=== PATIENT | female | born 1985 | race Caucasian/White ===

== ENCOUNTER 2016-11-18 02:45 | Emergency (ER) | payer OTHER ==
[2016-11-18 03:04] VITALS: BP 127/75; PULSE 60; RESP 18; TEMP 97.5
[2016-11-18] MEDS ORDERED: IBUPROFEN 600 MG TAB PO STA (03:18)
[2016-11-18] MEDS ORDERED: ACETAMINOPHEN TAB 325 MG TAB PO STA (03:18)
[2016-11-18] MEDS ORDERED: predniSONE 50 MG TAB PO STA (03:18)
--- NOTE | 2016-11-18 03:20 | ED ---
Extremity Problem HPI - General Chief complaint: Extremity Problem,Nontraumatic Stated complaint: Leg Pain Time Seen by Provider: 11/18/16 03:05 Source: patient, RN notes reviewed Mode of arrival: ambulatory Limitations: no limitations - History of Present Illness Initial comments: 31-year-old female presents emergency Department chief complaint of bilateral knee pain. Patient states last few days that she's had increasing symptoms of pain shooting down her legs. She states that since it starts in her knees and radiates down. Patient does have a history of scoliosis of her back. She states she has some right low back pain. Patient denies any bladder incontinence or retention. Denies any saddle anesthesias. Patient states that she had no dramatic injury to her knee or back at this time. Patient states that she did work last night and which made her symptoms worsen states that her knees evidence bothering her or just more in her legs in general. Patient has not tried any Tylenol Motrin at this time. - Related Data Home Medications Medication Instructions Recorded Confirmed Ranitidine HCl [Zantac] 75 mg PO HS 11/18/16 11/18/16 Previous Rx's Medication Instructions Recorded methylPREDNISolone [Medrol Dose 4 mg PO DIRECTED #1 pack 11/18/16 Pack] Allergies Allergy/AdvReac Type Severity Reaction Status Date / Time No Known Allergies Allergy Verified 12/24/14 04:49 Review of Systems ROS Statement: Those systems with pertinent positive or pertinent negative responses have been documented in the HPI. ROS Other: All systems not noted in ROS Statement are negative. Past Medical History Past Medical History: No Reported History Additional Past Medical History / Comment(s): Obstetric history: First she underwent a for distress. The second was a vaginal delivery at 34 weeks. This is her third and she had care with ar since 7 weeks. A+, abs neg, Rub Imm, RPR NR, Hep B neg. GBS neg. History of Any Multi-Drug Resistant Organisms: None Reported Past Surgical History: Section Past Anesthesia/Blood Transfusion Reactions: No Reported Reaction Past Psychological History: No Psychological Hx Reported Smoking Status: Never smoker Past Alcohol Use History: Occasional Past Drug Use History: None Reported - Past Family History Mother Family Medical History: Asthma General Exam Limitations: no limitations General appearance: alert, in no apparent distress Head exam: Present: atraumatic, normocephalic, normal inspection Respiratory exam: Present: normal lung sounds bilaterally. Absent: respiratory distress, wheezes, rales, rhonchi, stridor Cardiovascular Exam: Present: regular rate, normal rhythm, normal heart sounds. Absent: systolic murmur, diastolic murmur, rubs, gallop, clicks GI/Abdominal exam: Present: soft, normal bowel sounds. Absent: distended, tenderness, guarding, rebound, rigid Extremities exam: Present: other (Bilateral lower extremities neurovascular intact, strength is 5/5, bilateral knees no laxity negative anterior posterior drawer test no pain with valgus or varus no joint effusion) Back exam: Present: full ROM, tenderness (Mild tenderness right low back), paraspinal tenderness. Absent: vertebral tenderness Neurological exam: Present: alert, oriented X3, CN II-XII intact, reflexes normal. Absent: motor sensory deficit Course Vital Signs 11/18/16 03:00 Temperature 97.5 F L Pulse Rate 60 Respiratory 18 Rate Blood Pressure 127/75 O2 Sat by Pulse 100 Oximetry Medical Decision Making - Medical Decision Making 31-year-old female presented for leg pain. Patient's pain seems to be more lumbar radiculopathy in nature as it's pain is radiating down her legs. Patient has no physical findings on knee exam. Patient complains primarily of left knee pain but also right-sided. Patient was informed she may have meniscus injury of her knee if symptoms persist follow-up. Patient was offered pain medication in muscle relaxers which she declined. Patient was started on prednisone for inflammation and she will take [id number] acetaminophen. Disposition Clinical Impression: Lumbar radiculopathy, acute, Knee pain Disposition: HOME SELF-CARE Condition: Stable Instructions: Lumbar Radiculopathy (ED) Additional Instructions: Please return to the Emergency Department if symptoms worsen or any other concerns. Prescriptions: methylPREDNISolone [Medrol Dose Pack] 4 mg PO DIRECTED #1 pack Referrals: Aron Loera DO [Primary Care Provider] - 1-2 days Time of Disposition: 03:19
== END 2016-11-18 03:32 | disposition home or self-care (01) ==
LOC: EC 02:45
DX: M54.16 Radiculopathy, lumbar region (principal); M25.562 Pain in left knee; M25.561 Pain in right knee; Z79.899 Other long term (current) drug therapy
CPT/HCPCS: 99283; J7512

== ENCOUNTER 2018-01-20 20:36 | Emergency (ER) | payer OTHER ==
[2018-01-20 20:45] VITALS: BP 106/68; TEMP 98.3
[2018-01-20] MEDS ORDERED: SODIUM CHLORIDE 0.9% 1,000 ML IV STA (21:11)
[2018-01-20] MEDS ORDERED: ONDANSETRON 4 MG/2 ML VIAL IVP STA (21:11)
--- NOTE | 2018-01-20 21:14 | ED ---
Abdominal Pain HPI - General Chief Complaint: Abdominal Pain Stated Complaint: Pain URQ/nausea Time Seen by Provider: 01/20/18 20:52 Source: patient Mode of arrival: ambulatory Limitations: no limitations - History of Present Illness Initial Comments: Patient is a 32-year-old female that presents for abdominal pain and nausea. Patient states that the right upper quadrant abdominal pain is been intermittent for 1 month and a physical pressure sensation without radiation or modifying factors. She decided come in after she was having worsening nausea but the pain is about the same. She denies any fever/chills or vomiting/ diarrhea. She also admits to some pressure with urination but no zoey dysuria. She states that she has no prior history of intra-abdominal pathology. - Related Data Previous Rx's Medication Instructions Recorded Ondansetron Odt [Zofran Odt] 4 mg PO Q8HR PRN #15 tab 01/20/18 Allergies Allergy/AdvReac Type Severity Reaction Status Date / Time No Known Allergies Allergy Verified 01/20/18 20:45 Review of Systems ROS Statement: Those systems with pertinent positive or pertinent negative responses have been documented in the HPI. Constitutional: Negative for chills, fatigue and fever. HENT: Negative for congestion. Respiratory: Negative for chest tightness, shortness of breath and wheezing. Negative for cough Cardiovascular: Negative for chest pain and palpitations. Gastrointestinal: Positive for abdominal pain. Negative for abdominal distention , diarrhea, vomiting. Positive nausea Genitourinary: Negative for dysuria. Musculoskeletal: Negative for back pain, neck pain and neck stiffness. Skin: Negative for color change. Neurological: Negative for dizziness, speech difficulty, weakness and light- headedness. Psychiatric/Behavioral: Negative for agitation and confusion. Negative for anxiety ROS Other: All systems not noted in ROS Statement are negative. Past Medical History Past Medical History: No Reported History Additional Past Medical History / Comment(s): Obstetric history: First she underwent a for distress. The second was a vaginal delivery at 34 weeks. This is her third and she had care with [facility] since 7 weeks. A+, abs neg, Rub Imm, RPR NR, Hep B neg. GBS neg. History of Any Multi-Drug Resistant Organisms: None Reported Past Surgical History: Section Past Anesthesia/Blood Transfusion Reactions: No Reported Reaction Past Psychological History: No Psychological Hx Reported Smoking Status: Never smoker Past Alcohol Use History: Occasional Past Drug Use History: None Reported - Past Family History Mother Family Medical History: Asthma General Exam - General Exam Comments Initial Comments: Constitutional: Pt is oriented to person, place, and time. Pt appears well- developed and well-nourished. No distress. HENT: Head: Normocephalic and atraumatic. Eyes: EOM are normal. Neck: Normal range of motion. Neck supple. Cardiovascular: Normal rate, regular rhythm, S1 normal, S2 normal and normal heart sounds. Exam reveals no gallop and no friction rub. No murmur heard. Pulmonary/Chest: Effort normal and breath sounds normal. No tachypnea and no bradypnea. No respiratory distress. No wheezes or rales noted. Abdominal: Soft. Bowel sounds are normal. Pt exhibits no shifting dullness, no distension, no pulsatile liver, no fluid wave, no abdominal bruit and no ascites. There is no tenderness. There is no rigidity, no rebound, no guarding, no tenderness at McBurney's point and negative Wood's sign. Musculoskeletal: Normal range of motion. Neurological: Pt is alert and oriented to person, place, and time. No cranial nerve deficit. Skin: Skin is warm and dry. No rash noted. Pt is not diaphoretic. No erythema. No pallor. Psychiatric: Pt has a normal mood and affect. Pt behavior is normal. Thought content normal. Limitations: no limitations Course Vital Signs 01/20/18 01/20/18 20:43 22:55 Temperature 98.3 F Pulse Rate 72 88 Respiratory 18 16 Rate Blood Pressure 106/68 O2 Sat by Pulse 99 99 Oximetry Medical Decision Making - Medical Decision Making Laboratory studies showed no evidence of leukocytosis, transaminitis, pancreatitis. Urinalysis is also negative for as well as infection. Lab results were discussed with patient and because there is no overt abnormal findings, the pros and cons of ultrasound were discussed and patient ultimately declined ultrasound here in the emergency department that she did not wish to wait. She was also given Zofran and stated that her symptoms were significantly improved. Patient was advised that her symptoms may be secondary to gallbladder pathology but is on physical exam and laboratory findings, there does not appear to be emergent pathology didn't needs immediate imaging but that she should have this done on outpatient basis and that she should follow up with general surgery pending the findings.Explained all labs and diagnostic test results and that we will discharge the patient home and patient is to follow up with PCP in 1-2 days and return to the ED if symptoms worsen. Pt is agreeable to plan. - Lab Data Result diagrams: 01/20/18 21:20 01/20/18 21:20 Lab Results 01/20/18 01/20/18 01/20/18 Range/Units 21:20 21:20 21:20 WBC 5.9 (3.8-10.6) k/uL RBC 4.61 (3.80-5.40) m/uL Hgb 12.2 (11.4-16.0) gm/dL Hct 37.8 (34.0-46.0) % MCV 82.0 (80.0-100.0) fL MCH 26.5 (25.0-35.0) pg MCHC 32.3 (31.0-37.0) g/dL RDW 14.3 (11.5-15.5) % Plt Count 309 (150-450) k/uL Neutrophils % 42 % Lymphocytes % 43 % Monocytes % 9 % Eosinophils % 2 % Basophils % 1 % Neutrophils # 2.5 (1.3-7.7) k/uL Lymphocytes # 2.6 (1.0-4.8) k/uL Monocytes # 0.5 (0-1.0) k/uL Eosinophils # 0.1 (0-0.7) k/uL Basophils # 0.1 (0-0.2) k/uL Sodium 137 (137-145) mmol/L Potassium 4.4 (3.5-5.1) mmol/L Chloride 106 (98-107) mmol/L Carbon Dioxide 22 (22-30) mmol/L Anion Gap 9 mmol/L BUN 17 (7-17) mg/dL Creatinine 0.60 (0.52-1.04) mg/dL Est GFR (CKD-EPI)AfAm >90 (>60 ml/min/1.73 sqM) Est GFR (CKD-EPI)NonAf >90 (>60 ml/min/1.73 sqM) Glucose 104 H (74-99) mg/dL Calcium 9.4 (8.4-10.2) mg/dL Total Bilirubin 0.3 (0.2-1.3) mg/dL AST 26 (14-36) U/L ALT 29 (9-52) U/L Alkaline Phosphatase 52 (38-126) U/L Total Protein 7.8 (6.3-8.2) g/dL Albumin 4.1 (3.5-5.0) g/dL Lipase 220 (23-300) U/L Urine Color Urine Appearance (Clear) Urine pH (5.0-8.0) Ur Specific [place] (1.001-1.035) Urine Protein (Negative) Urine Glucose (UA) (Negative) Urine Ketones (Negative) Urine Blood (Negative) Urine Nitrite (Negative) Urine Bilirubin (Negative) Urine Urobilinogen (<2.0) mg/dL Ur Leukocyte Esterase (Negative) Urine RBC (0-5) /hpf Urine WBC (0-5) /hpf Ur Squamous Epith Cells (0-4) /hpf Urine HCG, Qual Not Detected (Not Detectd) 01/20/18 Range/Units 21:20 WBC (3.8-10.6) k/uL RBC (3.80-5.40) m/uL Hgb (11.4-16.0) gm/dL Hct (34.0-46.0) % MCV (80.0-100.0) fL MCH (25.0-35.0) pg MCHC (31.0-37.0) g/dL RDW (11.5-15.5) % Plt Count (150-450) k/uL Neutrophils % % Lymphocytes % % Monocytes % % Eosinophils % % Basophils % % Neutrophils # (1.3-7.7) k/uL Lymphocytes # (1.0-4.8) k/uL Monocytes # (0-1.0) k/uL Eosinophils # (0-0.7) k/uL Basophils # (0-0.2) k/uL Sodium (137-145) mmol/L Potassium (3.5-5.1) mmol/L Chloride (98-107) mmol/L Carbon Dioxide (22-30) mmol/L Anion Gap mmol/L BUN (7-17) mg/dL Creatinine (0.52-1.04) mg/dL Est GFR (CKD-EPI)AfAm (>60 ml/min/1.73 sqM) Est GFR (CKD-EPI)NonAf (>60 ml/min/1.73 sqM) Glucose (74-99) mg/dL Calcium (8.4-10.2) mg/dL Total Bilirubin (0.2-1.3) mg/dL AST (14-36) U/L ALT (9-52) U/L Alkaline Phosphatase (38-126) U/L Total Protein (6.3-8.2) g/dL Albumin (3.5-5.0) g/dL Lipase (23-300) U/L Urine Color Light Yellow Urine Appearance Cloudy H (Clear) Urine pH 6.0 (5.0-8.0) Ur Specific [place] 1.014 (1.001-1.035) Urine Protein Negative (Negative) Urine Glucose (UA) Negative (Negative) Urine Ketones Negative (Negative) Urine Blood Negative (Negative) Urine Nitrite Negative (Negative) Urine Bilirubin Negative (Negative) Urine Urobilinogen <2.0 (<2.0) mg/dL Ur Leukocyte Esterase Trace H (Negative) Urine RBC 1 (0-5) /hpf Urine WBC 3 (0-5) /hpf Ur Squamous Epith Cells 7 H (0-4) /hpf Urine HCG, Qual (Not Detectd) Disposition Clinical Impression: Abdominal pain, Nausea Disposition: HOME SELF-CARE Condition: Good Instructions: Abdominal Pain (ED) Prescriptions: Ondansetron Odt [Zofran Odt] 4 mg PO Q8HR PRN #15 tab PRN Reason: Nausea And Vomiting Is patient prescribed a controlled substance at d/c from ED?: No Referrals: Aron Loera DO [Primary Care Provider] - 1-2 days Adrian Johnson MD [STAFF PHYSICIAN] - 1-2 days Time of Disposition: 22:27
[2018-01-20 21:42] LABS: Basophils # (A) 0.1 k/uL (0-0.2); Basophils % (A) 1 %; Eosinophils # (A) 0.1 k/uL (0-0.7); Eosinophils % (A) 2 %; HCT 37.8 % (34.0-46.0); HGB 12.2 gm/dL (11.4-16.0); Lymphocytes # (A) 2.6 k/uL (1.0-4.8); Lymphocytes % (A) 43 %; MCH 26.5 pg (25.0-35.0); MCHC 32.3 g/dL (31.0-37.0); Mean Platelet Volume 6.8; Monocytes # (A) 0.5 k/uL (0-1.0); Monocytes % (A) 9 %; Neutrophils # (A) 2.5 k/uL (1.3-7.7); Neutrophils % (A) 42 %; Platelet Count 309 k/uL (150-450); RBC 4.61 m/uL (3.80-5.40); RDW 14.3 % (11.5-15.5); WBC 5.9 k/uL (3.8-10.6)
[2018-01-20 21:45] LABS: Appearance,Urine Cloudy (Clear); Bilirubin,Urine Negative (Negative); Blood,Urine Negative (Negative); Color,Urine Light Yellow; Glucose,Urine (UA) Negative (Negative); Ketones,Urine Negative (Negative); Leukocyte Esterase,Urine Trace (Negative); Nitrite,Urine Negative (Negative); Protein,Urine Negative (Negative); RBC,Urine 1 /hpf (0-5); Specific Gravity,Urine 1.014 (1.001-1.035); Squamous Epithelial Cell,Urine 7 /hpf (0-4); Urobilinogen,Urine <2.0 mg/dL (<2.0); WBC,Urine 3 /hpf (0-5)
[2018-01-20 21:51] LABS: ALT 29 U/L (9-52); AST 26 U/L (14-36); Albumin 4.1 g/dL (3.5-5.0); Alkaline Phosphatase 52 U/L (38-126); Anion Gap 9 mmol/L; Blood Urea Nitrogen 17 mg/dL (7-17); Calcium 9.4 mg/dL (8.4-10.2); Carbon Dioxide 22 mmol/L (22-30); Chloride 106 mmol/L (98-107); Glucose 104 mg/dL (74-99); Lipase 220 U/L (23-300); Potassium 4.4 mmol/L (3.5-5.1); Sodium 137 mmol/L (137-145); Total Bilirubin 0.3 mg/dL (0.2-1.3); Total Protein 7.8 g/dL (6.3-8.2)
[2018-01-20 22:59] VITALS: PULSE 88; RESP 16
== END 2018-01-20 22:55 | disposition home or self-care (01) ==
LOC: EC 20:36
DX: R10.11 Right upper quadrant pain (principal); R11.0 Nausea
CPT/HCPCS: 36415; 80053; 83690; 85025; 81001; 81025; 99284; 96374; 96361; J2405

== ENCOUNTER → 2018-01-31 | Outpatient (CLI) | payer OTHER ==
--- NOTE | 2018-01-31 15:00 | US ---
EXAMINATION TYPE: US transvaginal DATE OF EXAM: 01/31/2018 COMPARISON: 01/30/2014 CLINICAL HISTORY: R10.2 Pelvic pain. TECHNIQUE: Transvaginal sonographic images were medically necessary to better assess the following a natomy: Date of LMP: just stopped EXAM MEASUREMENTS: Uterus: 9.8 x 4.7 x 6.9 cm Endometrial Stripe: 1.1 cm Right Ovary: 2.6 x 2.3 x 1.8 cm Left Ovary: 3.2 x 2.7 x 2.4 cm 1. Uterus: Retroverted 2. Endometrium: wnl for secretory phase 3. Right Ovary: wnl 4. Left Ovary: 2.1 x 1.5 x 1.9 anechoic lesion most likely a cyst 5. Bilateral Adnexa: wnl 6. Posterior cul-de-sac: no free fluid Retroverted uterus is seen. Endometrium is heterogeneous, slightly thickened for proliferative phase of menstrual cycle after recently completing menstruation. No free fluid is seen in pelvic cul-de-sac . Both ovaries are seen. There is 2.0 cm prominent follicle or simple ovarian cyst and periphery of lef t ovary. IMPRESSION: No significant finding is seen to account for patient's symptoms of pelvic pain.
== END | disposition home or self-care (01) ==
LOC: RADUSWWP 12:23
PROVIDERS: ATTEND Family Medicine
DX: R10.2 Pelvic and perineal pain (principal)
CPT/HCPCS: 76830

== ENCOUNTER → 2019-04-18 | Outpatient (CLI) | payer OTHER ==
--- NOTE | 2019-04-18 15:52 | CT ---
EXAMINATION TYPE: CT brain wo con DATE OF EXAM: 04/18/2019 COMPARISON: CT brain July 05, 2017 HISTORY: headaches and pressure CT DLP: 963.6 mGycm. Automated Exposure Control for Dose Reduction was Utilized. TECHNIQUE: CT scan of the head is performed without contrast. FINDINGS: There is no acute intracranial hemorrhage, mass effect, or midline shift identified. The ventricles and sulci are within normal limits in size. Adams-white matter differentiation is maintai ramírez. The globes are intact and the visualized sinuses are clear. IMPRESSION: Unremarkable study. No significant change from prior.
== END | disposition home or self-care (01) ==
LOC: RADCTMAIN 15:25
PROVIDERS: ATTEND Family Medicine
DX: R51 Headache (principal)
CPT/HCPCS: 70450

== ENCOUNTER → 2019-04-24 | Outpatient (CLI) | payer OTHER ==
--- NOTE | 2019-04-24 10:02 | US ---
EXAMINATION TYPE: US abdomen complete DATE OF EXAM: 04/24/2019 COMPARISON: NONE CLINICAL HISTORY: R10.84 Generalized abdominal pain. RUQ pain when she bends down, h/o renal stones EXAM MEASUREMENTS: Liver Length: 13.9 cm Gallbladder Wall: 0.2 cm CBD: 0.5 cm Spleen: 12.0 cm Right Kidney: 9.4 x 4.7 x 4.7 cm Left Kidney: 10.3 x 4.4 x 4.6 cm Pancreas: wnl Liver: wnl Gallbladder: shadowing stones seen that were nobile with no wall thickening Evidence for sonographic Wood's sign: no CBD: wnl Spleen: wnl Right Kidney: inferior pole calculus measures 1.3 cm Left Kidney: inferior pole calculus measures 1.4 cm Upper IVC: wnl Abd Aorta: wnl The liver is homogenous. The intrahepatic portion of the IVC and proximal abdominal aorta are within normal limits. There is no evidence of cholelithiasis. Common bile duct is unremarkable. The visu alized portions of the pancreas are homogenous. The spleen is unremarkable. Kidneys are symmetric a nd free of hydronephrosis. No renal lesions are seen. IMPRESSION: Bilateral nonobstructing renal calculi. Cholelithiasis is also seen without sonographic e vidence of acute cholecystitis.
== END | disposition home or self-care (01) ==
LOC: RADUSWWP 08:58
PROVIDERS: ATTEND Family Medicine
DX: N20.0 Calculus of kidney (principal); K80.20 Calculus of gallbladder without cholecystitis without obstruction
CPT/HCPCS: 76700

== ENCOUNTER → 2021-10-21 | Outpatient (CLI) | payer OTHER ==
--- NOTE | 2021-10-21 09:17 | US ---
EXAMINATION TYPE: US pelvic complete DATE OF EXAM: 10/21/2021 COMPARISON: NONE CLINICAL HISTORY: PAIN. pain TECHNIQUE: . Transabdominal sonographic images of the pelvis were acquired. Transvaginal sonographi c images were medically necessary to better assess the following anatomy: Date of LMP: 10/17/2021 EXAM MEASUREMENTS: Uterus: 11.4 x 3.8 x 5.6 cm Endometrial Stripe: .6 cm Right Ovary: 2.4 x 1.5 x 2.3 cm Left Ovary: 3.0 x 1.9 x 3.0 cm 1. Uterus: Anteverted wnl 2. Endometrium: wnl 3. Right Ovary: wnl 4. Left Ovary: wnl 5. Bilateral Adnexa: wnl 6. Posterior cul-de-sac: wnl Urinary bladder appears sonolucent. Couple follicles may be present on the ovaries. IMPRESSION: 1. Normal pelvic ultrasound
--- NOTE | 2021-10-21 09:59 | US ---
EXAMINATION TYPE: US abdomen complete DATE OF EXAM: 10/21/2021 COMPARISON: NONE CLINICAL HISTORY: R10.84 Abd pain. pain TECHNIQUE: Multiple sonographic images of the abdomen are obtained. 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 Cholelithiasis.
== END | disposition home or self-care (01) ==
LOC: RADUSWWP 08:13
PROVIDERS: ATTEND Family Medicine
DX: R10.84 Generalized abdominal pain (principal)
CPT/HCPCS: 76700; 76856

== ENCOUNTER 2024-07-14 22:00 | Emergency (ER) | payer OTHER ==
[2024-07-14] MEDS: FLUORESCEIN STRIPS 1 MG STRIP RIGHT EYE ONE (22:29)
--- NOTE | 2024-07-14 23:13 | ED ---
Eye Problem HPI - General Chief complaint: Eye Problems Stated complaint: right eye blurry Time Seen by Provider: 07/14/24 22:16 Source: patient, RN notes reviewed Mode of arrival: ambulatory Limitations: no limitations - History of Present Illness Initial comments: This is a 38-year-old female presenting for sudden onset of right eye blurred vision x 2 hours. Patient states it feels her right eye is "underwater". Patient Dors is use of glasses and does not wear contacts. Denies change in vision in left eye, eye pain, diplopia, recent foreign body or trauma, discharge/epiphora,, loss of peripheral vision, sensation of curtain dropping downward, paresthesia, hemiplegia, dizziness. MD chief complaint: vision change Onset/Timin -: hour(s) Onset Description: sudden Location: right eye Place: home If Injury: none Eye Symptoms: blurry vision Associated Symptoms: none Treatments Prior to Arrival: irrigated eye - Related Data Previous Rx's Medication Instructions Recorded Ondansetron Odt [Zofran Odt] 4 mg PO Q8HR PRN #15 tab 01/20/18 Dicyclomine [Bentyl] 20 mg PO QID #15 tablet 05/03/22 Famotidine [Pepcid] 20 mg PO BID #14 tablet 05/03/22 Ondansetron Odt [Zofran ODT] 4 mg PO Q8HR PRN #10 tab 05/03/22 Allergies Allergy/AdvReac Type Severity Reaction Status Date / Time No Known Allergies Allergy Verified 07/14/24 22:07 Review of Systems ROS Statement: Those systems with pertinent positive or pertinent negative responses have been documented in the HPI. ROS Other: All systems not noted in ROS Statement are negative. Past Medical History Past Medical History: No Reported History Additional Past Medical History / Comment(s): Obstetric history: First she underwent a for distress. The second was a vaginal delivery at 34 weeks. This is her third and she had care with me since 7 weeks. A+, abs neg, Rub Imm, RPR NR, Hep B neg. GBS neg. History of Any Multi-Drug Resistant Organisms: None Reported Past Surgical History: Section, Cholecystectomy Past Anesthesia/Blood Transfusion Reactions: No Reported Reaction Past Psychological History: No Psychological Hx Reported Smoking Status: Never smoker Past Alcohol Use History: Occasional Past Drug Use History: None Reported - Past Family History Mother Family Medical History: Asthma General Exam Limitations: no limitations General appearance: alert, in no apparent distress Head exam: Present: atraumatic, normocephalic, normal inspection Eye exam: Present: normal appearance, PERRL, EOMI, other (Snellen chart: Right 20/25, left 20/20. Tonometer: Right 16, left 14. WhatsApp examination reveals no obvious foreign body, corneal abrasion, herpetic lesion, Brennen sign, hyphema, irregular pupil). Absent: scleral icterus, conjunctival injection, periorbital swelling Pupils: Present: normal accommodation ENT exam: Present: normal exam, mucous membranes moist Neck exam: Present: normal inspection. Absent: tenderness, meningismus, lymphadenopathy Respiratory exam: Present: normal lung sounds bilaterally. Absent: respiratory distress, wheezes, rales, rhonchi, stridor Cardiovascular Exam: Present: regular rate, normal rhythm, normal heart sounds. Absent: systolic murmur, diastolic murmur, rubs, gallop, clicks GI/Abdominal exam: Present: soft, normal bowel sounds. Absent: distended, tenderness, guarding, rebound, rigid Extremities exam: Present: normal inspection, full ROM, normal capillary refill. Absent: tenderness, pedal edema, joint swelling, calf tenderness Back exam: Present: normal inspection Neurological exam: Present: alert, oriented X3, CN II-XII intact Psychiatric exam: Present: normal affect, normal mood Skin exam: Present: warm, dry, intact, normal color. Absent: rash Course Vital Signs 07/14/24 07/14/24 22:02 23:36 Temperature 98.2 F 98.1 F Pulse Rate 88 64 Respiratory 20 18 Rate Blood Pressure 143/95 115/75 O2 Sat by Pulse 98 97 Oximetry Medical Decision Making - Medical Decision Making Was pt. sent in by a medical professional or institution (, PA, HEALTHCARE ASSOCIATE, urgent care, hospital, or [place] [facility] care facility...) When possible be specific @ -[No] Did you speak to anyone other than the patient for history (EMS, parent, family, police, friend...)? What history was obtained from this source @ -[No] Did you review nursing and triage notes (agree or disagree)? Why? @ -[I reviewed and agree with nursing and triage notes] Were old charts reviewed (outside hosp., previous admission, EMS record, old EKG, old radiological studies, urgent care reports/EKG's, [place] health care facility records)? Report findings @ -[No old charts were reviewed] Differential Diagnosis (chest pain, altered mental status, abdominal pain women, abdominal pain men, vaginal bleeding, weakness, fever, dyspnea, syncope, headache, dizziness, GI bleed, back pain, seizure, CVA, palpatations, mental health, musculoskeletal)? @ -Allergic conjunctivitis, viral conjunctivitis, iritis, episcleritis, this is not an exhaustive list EKG interpreted by me (3pts min.). @ -Not done X-rays interpreted by me (1pt min.). @ -[None done] CT interpreted by me (1pt min.). @ -[None done] U/S interpreted by me (1pt. min.). @ -[None done] What testing was considered but not performed or refused? (CT, X-rays, U/S, labs)? Why? @ -[None] What meds were considered but not given or refused? Why? @ -[None] Did you discuss the management of the patient with other professionals (professionals i.e. , PA, HEALTHCARE ASSOCIATE, lab, RT, psych nurse, social service manager, director data analytics, teacher, aboriginal home school liaison officer, casework manager)? Give summary @ -Spoke to Dr. Garcia who advised lubricating eyedrops and follow-up at his clinic tomorrow morning. Was smoking cessation discussed for >3mins.? @ -[No] Was critical care preformed (if so, how long)? @ -[No] Were there social determinants of health that impacted care today? How? (Homelessness, low income, unemployed, alcoholism, drug addiction, transportation, low edu. Level, literacy, decrease access to med. care, alf, rehab)? @ -[No] Was there de-escalation of care discussed even if they declined (Discuss DNR or withdrawal of care, Hospice)? DNR status @ -[No] What co-morbidities impacted this encounter? (DM, HTN, Smoking, COPD, CAD, Cancer, CVA, ARF, Chemo, Hep., AIDS, mental health diagnosis, sleep apnea, morbid obesity)? @ -[None] Was patient admitted / discharged? Hospital course, mention meds given and route, prescriptions, significant lab abnormalities, going to OR and other pertinent info. @ -[hospital course] Undiagnosed new problem with uncertain prognosis? @ -[No] Drug Therapy requiring intensive monitoring for toxicity (Heparin, Nitro, Insulin, Cardizem)? @ -[No] Were any procedures done? @ -[No] Diagnosis/symptom? @ -Unilateral vision changes Acute, or Chronic, or Acute on Chronic? @ -Acute Uncomplicated (without systemic symptoms) or Complicated (systemic symptoms)? @ -Complicated Side effects of treatment? @ -[No] Exacerbation, Progression, or Severe Exacerbation? @ -[No] Poses a threat to life or bodily function? How? (Chest pain, [place], [place], pneumonia, PE, COPD, DKA, ARF, appy, cholecystitis, CVA, Diverticulitis, Homicidal, Suicidal, threat to staff... and all critical care pts) @ -[No] Disposition Clinical Impression: Blurring of visual image of right eye Disposition: HOME SELF-CARE Condition: Good Instructions (If sedation given, give patient instructions): Blurred Vision (ED) Additional Instructions: Use lubricating eyedrops as needed. Follow-up with Dr. Tay in morning for further evaluation. Is patient prescribed a controlled substance at d/c from ED?: No Referrals: Ileana Becah MD [Primary Care Provider] - 1-2 days Frank Tay MD [STAFF PHYSICIAN] - 1-2 days Time of Disposition: 23:13
[2024-07-14] MEDS: ARTIFICIAL TEARS OINTMENT 3.5 GM TUBE RIGHT EYE STA (23:34)
[2024-07-14 23:50] VITALS: BP 115/75; PULSE 64; RESP 18; TEMP 98.1
== END 2024-07-14 23:36 | disposition home or self-care (01) ==
LOC: EC 22:00
DX: H53.8 Other visual disturbances (principal)
CPT/HCPCS: 99283